=== PATIENT | female | born 1980 | race Caucasian/White ===

== ENCOUNTER 2017-01-25 17:45 | Inpatient (IN) | payer OTHER ==
[~2017-01-25] VITALS: Ht 162.6 cm; Wt 140.2 kg
[~2017-01-25 17:45] MED LIST: ALBUTEROL SULFAT3 M1 INH; ALDACTONE 25 MG25 MG PO; BENZONATATE100 MG PO; CARVEDILOL6.25 MG PO; CEFTRIAXONE2 GM IV; CO-Q-10 100 MG-1 SGL PO; COREG 12.5MG12.5 MG PO; DOBUTAMINE IV; FUROSEMIDE40 MG PO; IBU800 MG PO; MELATONIN5 M1 PO; PROAIR HFA0.09 MG/Ac INH; SPIRIVA 18 MCG18 MCG INH; SPIRIVA1 PUF INH; SPIRONOLACTONE25 MG PO; SYMBICORT 160/41 PUF INH; TAMIFLU 75MG75 MG PO; TIGAN100 MG/ML IM; TYLENOL TAB 32325 MG PO; VENTOLIN1 PUF INH; ZOFRAN 2MG/4 MG/2 ML IV; [UNRECOGNIZED DRUG - OTHER] IV
--- NOTE | 2017-01-25 17:51 | NUR ---
PT STATES THAT SHE HAS CHF AND THAT SHE HAS BEEN FEELING SOB, DIAGNOSED WITH PNA AT [facility] ON SUNDAY AND STATES THAT SHE DOES NOT FEEL BETTER. O2 SAT 92 % ON RA, AFEBRILE, STATES THAT SHE HAS NON PRODUCTIVE COUGH. CALLED DR GARCIA AND HE TOLD HER TO COME TO ER FOR FURTHER EVAL.
--- NOTE | 2017-01-25 18:59 | ED DYSPNEA/ASTHMA COMPLAINT ---
History of Present Illness General Chief Complaint: Fever Stated Complaint: FEVER,SOB Source: patient, family, old records Exam Limitations: no limitations Vital Signs & Intake/Output Vital Signs & Intake/Output Vital Signs Date Time Temp Pulse Resp B/P B/P Pulse O2 O2 Flow FiO2 Mean Ox Delivery Rate 01/25 2023 96 01/25 1922 Room Air 01/25 1747 96.1 90 18 112/74 92 Room Air Allergies Coded Allergies: No Known Allergies (10/19/15) Reconcile Medications Albuterol Sulfate (Proair Hfa) 90 MCG HFA.AER.AD 2 PUF INH AD PRN EXERCISE INDUCED ASTHMA (Reported) Azithromycin 500 MG TABLET 1 TAB PO DAILY PNEUMONIA (Reported) Bumetanide 2 MG TABLET 1 TAB PO BID DIURETIC (Reported) Carvedilol 12.5 MG TABLET 1 TAB PO BID HEART (Reported) Codeine Phosphate/Guaifenesi (Virtussin AC Liquid) 10 MG-100 MG/5 ML LIQUID 15 ML PO Q4-6H PRN COUGH (Reported) Duloxetine HCl 20 MG CAPSULE.DR 1 CAP PO DAILY NERVE PAIN (Reported) Magnesium Oxide 400 MG TABLET 1 TAB PO DAILY SUPPLEMENT (Reported) Pantoprazole Sodium 20 MG TABLET.DR 1 TAB PO DAILY GI (Reported) Sacubitril/Valsartan (Entresto 49 MG-51 MG Tablet) 49 MG-51 MG TABLET 1 TAB PO BID HEART (Reported) Spironolactone 50 MG TABLET 1 TAB PO DAILY DIURETIC (Reported) Ubidecarenone (Co Q-10) (Unknown Strength) CAPSULE (Unknown Dose) PO DAILY SUPPLEMENT (Reported) Triage Note: PT STATES THAT SHE HAS CHF AND THAT SHE HAS BEEN FEELING SOB, DIAGNOSED WITH PNA AT [facility] ON SUNDAY AND STATES THAT SHE DOES NOT FEEL BETTER. O2 SAT 92 % ON RA, AFEBRILE, STATES THAT SHE HAS NON PRODUCTIVE COUGH. CALLED DR GARCIA AND HE TOLD HER TO COME TO ER FOR FURTHER EVAL. Triage Nurses Notes Reviewed? yes Onset: Abrupt Duration: day(s):, constant, getting worse Timing: recent history Severity: moderate, severe Activities at Onset: none : No Patient currently breastfeeds: No HPI: 36-year-old female comes into emergency room with cough and increasing shortness of breath and weakness has been going on for the past few days. Patient was seen at [facility] 5 days ago and started on antibiotics. Patient reports that she feels progressively worse over the last 24 hours. Patient was started on azithromycin. Nothing seems to make the symptoms better. Patient has a history of congestive heart failure. Patient was diagnosed after her previous . Denies any other associated symptoms. (FUNMI BREWER) Past History Travel History Traveled to [place] past 21 day No Medical History Any Pertinent Medical History? 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 No (FUNMI BREWER) Review of Systems Review of Systems Constitutional: Reports: see HPI. EENTM: Reports: see HPI. Respiratory: Reports: see HPI. Cardiovascular: Reports: no symptoms. GI: Reports: no symptoms. Genitourinary: Reports: no symptoms. Musculoskeletal: Reports: no symptoms. Skin: Reports: no symptoms. Neurological/Psychological: Reports: no symptoms. Hematologic/Endocrine: Reports: no symptoms. Immunologic/Allergic: Reports: no symptoms. All Other Systems: Reviewed and Negative (FUNMI BREWER) Physical Exam Physical Exam General Appearance: well developed/nourished, alert Head: atraumatic Eyes: Bilateral: normal appearance. Ears, Nose, Throat: normal ENT inspection, hearing grossly normal Neck: normal inspection Respiratory: no respiratory distress, wheezing Cardiovascular: regular rate/rhythm Gastrointestinal: soft Extremities: normal inspection Neurologic/Psych: awake, alert, oriented x 3, normal gait Skin: intact, normal color Core Measures ACS in differential dx? No Severe Sepsis Present: No Septic Shock Present: No (FUNMI BREWER) Progress Differential Diagnosis: asthma, AMI, bronchitis, costochondritis, CHF, COPD, musculoskeletal pain, pericarditis, pulmonary embolism, pneumonia, pneumothorax, rib fracture, unstable angina Plan of Care: Orders Procedure Date/time Status Heart Healthy Diet 01/26 B Active LACTIC ACID 01/25 2158 Complete TRC EVALUATION (GEN) 01/26 2136 Active Pathway - chart 01/26 2136 Active House Staff 01/26 2136 Active SPECIMEN TO BE OBTAINED 01/26 2136 Active Patient Data 01/25 2034 Active OXYGEN SETUP (GEN) 01/25 2025 Active Saline Lock 01/25 2025 Active Admit to inpatient 01/25 2025 Active Vital Signs 01/25 2025 Active Activity/Ambulation 01/25 2025 Active Code Status 01/25 2025 Active Intake & Output 01/25 192 Active BLOOD CULTURE 01/25 1858 Active TROPONIN LEVEL 01/25 185 Complete LACTIC ACID 01/25 1858 Complete COMPREHENSIVE METABOLIC PANEL 01/25 1858 Complete CBC WITHOUT DIFFERENTIAL 01/25 1858 Complete B-TYPE NATRIURETIC PEP (BNP) 01/25 1858 Complete EKG 01/25 1858 Active INCENTIVE SPIROMETRY TRX (GEN) 01/25 UNK Active Lab Add-on Test 01/25 UNK Active VTE Mechanical Prophylaxis 01/25 UNK Active Current Medications Sig/Tammy Start time Last Medication Dose Stop Time Status Admin Ceftriaxone Sodium 1,000 MG DAILY 01/26 1000 UNVr (Rocephin) Duloxetine HCl 20 MG DAILY 01/26 1000 UNVr (Cymbalta) Enoxaparin Sodium 40 MG DAILY 01/26 1000 UNVr (Lovenox) Magnesium Oxide 400 MG DAILY 01/26 1000 UNVr (Mag-Ox) Spironolactone 50 MG DAILY 01/26 1000 UNVr (Aldactone) Omeprazole 20 MG DAILY AC 01/26 0700 UNVr (Prilosec) Bumetanide 2 MG BID 01/25 2200 UNVr (Bumex) Carvedilol 12.5 MG BID 01/25 2200 UNVr (Coreg) Albuterol Sulfate 2 PUF .[AD] PRN 01/25 2145 UNVr (Ventolin) Azithromycin 500 MG Q24H 01/25 2145 UNVr (Zithromax) Sodium Chloride 250 ML (Normal Saline 0.9%) Guaifenesin 10 ML Q4P PRN 01/25 2145 UNVr (Robitussin) Non-Formulary 0 SEE ADMIN CRITERIA 01/25 2145 UNVr Medication (NON FORMULARY) Laboratory Tests 01/25/17 2014: Lactic Acid 0.9 01/25/171914: Anion Gap 13, Estimated GFR > 60, BUN/Creatinine Ratio 17.1, Glucose 161 H, Lactic Acid 1.5, Calcium 8.6, Total Bilirubin 0.4, AST 21, ALT 33, Alkaline Phosphatase 67, Troponin I < 0.01, Qsz-G-Sowmiquxhuc Pept 707 H, Total Protein 7.1, Albumin 3.9, Globulin 3.2, Albumin/Globulin Ratio 1.2, CBC w Diff NO MAN DIFF REQ, RBC 4.30, MCV 84.8, MCH 27.6, RDW 14.1, MPV 8.5, Gran % 57.8, Lymphocytes % 34.2, Monocytes % 6.6, Eosinophils % 1.1, Basophils % 0.3, Absolute Granulocytes 3.1, Absolute Lymphocytes 1.9, Absolute Monocytes 0.4, Absolute Eosinophils 0.1, Absolute Basophils 0, PUBS MCHC 32.5 L Microbiology 01/25 2014 BLOOD: Blood Culture - RECD 01/25 1915 BLOOD: Blood Culture - RECD Diagnostic Imaging: Viewed by Me: Radiology Read. Discussed w/RAD: Radiology Read. Radiology Impression: SERVICE DATE: 01/25/17 EXAM TYPE: RAD - XRY-CHEST XRAY, PA AND LATERAL EXAMINATION: XR CHEST CLINICAL INFORMATION: Cough, shortness of breath. COMPARISON: None TECHNIQUE: 2 views of the chest were obtained. FINDINGS: There is focal pneumonic infiltrate with patchy alveolar opacities of the right lower lobe. There is no pleural effusion. No pulmonary vascular congestion. Heart size enlarged. Precordial pacemaker lead anterior soft tissues of chest IMPRESSION: Right lower lobe pneumonia. Initial ED EKG: normal intervals, normal p-waves, normal sinus rhythm, rate (78) (FUNMI BREWER) Departure Departure Disposition: STILL A PATIENT Condition: Stable Clinical Impression Primary Impression: Right lower lobe pneumonia Referrals: CUBA AMIN MD (PCP/Family) Departure Forms: Customer Survey General Discharge Information Admission Note Spoke With: JOSE MCCRARY MD Documentation of Exam: Documentation of any treatments & extenuating circumstances including Concerns Regarding Discharge (functional status, medication knowledge or non-compliance, living conditions, etc.) that warrant an admission rather than observation: Patient has failed outpatient treatment with oral antibiotics. Patient has worsening symptoms. Patient will require supplemental oxygen as well as IV antibiotics. Possible pulmonary consult. History of congestive heart failure. (FUNMI BREWER) PA/NETWORK/TELECOM ENGINEER Co-Sign Statement Statement: ED Attending supervision documentation- x I saw and evaluated the patient. I have also reviewed all the pertinent lab results and diagnostic results. I agree with the findings and the plan of care as documented in the PA's/NETWORK/TELECOM ENGINEER's documentation. [] I have reviewed the ED Record and agree with the PA's/NETWORK/TELECOM ENGINEER's documentation. [] Additions or exceptions (if any) to the PAs/NETWORK/TELECOM ENGINEER's note and plan are summarized below: [] (RITA GARCIA MD) Critical Care Note Critical Care Note Critical Care Time: non-applicable (FUNMI BREWER)
--- NOTE | 2017-01-25 19:20 | RADIOLOGY REPORT ---
EXAMINATION: XR CHEST CLINICAL INFORMATION: Cough, shortness of breath. COMPARISON: None TECHNIQUE: 2 views of the chest were obtained. FINDINGS: There is focal pneumonic infiltrate with patchy alveolar opacities of the right lower lobe. There is no pleural effusion. No pulmonary vascular congestion. Heart size enlarged. Precordial pacemaker lead anterior soft tissues of chest IMPRESSION: Right lower lobe pneumonia.
--- NOTE | 2017-01-25 19:23 | NUR ---
BLUE, GOLD, LAV, FRANKLIN TUBES SENT TO LAB WELL AT THE 1ST BLOOD CULTURE.
[2017-01-25 19:28] LABS: ABSOLUTE BASOPHIL COUNT 0 /CUMM (0.0-0.2); ABSOLUTE EOSINOPHIL COUNT 0.1 /CUMM (0.0-0.7); ABSOLUTE GRANULOCYTE CT 3.1 /CUMM (1.4-6.5); ABSOLUTE LYMPH COUNT 1.9 /CUMM (1.2-3.4); ABSOLUTE MONOCYTE COUNT 0.4 /CUMM (0.10-0.60); BASOPHIL % 0.3 % (0.0-2.0); EOSINOPHIL % 1.1 % (0-5); GRANULOCYTE % 57.8 % (42.2-75.2); HEMATOCRIT 36.5 % (37-47); MEAN CORPUSCULAR HGB 27.6 PG (27.0-31.0); MEAN CORPUSCULAR HGB CONC 32.5 G/DL (33.0-37.0); MEAN CORPUSCULAR VOLUME 84.8 FL (81.0-99.0); MEAN PLATELET VOLUME 8.5 FL (7.4-10.4); PLATELET COUNT 253 /CUMM (130-400); RBC DISTRIBUTION WIDTH 14.1 % (11.5-14.5); WHITE BLOOD CELL COUNT 5.4 /CUMM (4.8-10.8)
[2017-01-25] MEDS ORDERED: MAGNESIUM OXID400 M1 PO (19:55)
[2017-01-25] MEDS ORDERED: BUMETANIDE2 M1 PO (19:55)
[2017-01-25] MEDS ORDERED: PANTOPRAZOLE SO20 M1 PO (19:55)
[2017-01-25] MEDS ORDERED: SPIRONOLACTONE50 M1 PO (19:55)
[2017-01-25] MEDS ORDERED: ENTRESTO 49 MG1 EACH PO (19:56)
[2017-01-25] MEDS ORDERED: DULOXETINE HCL20 MG PO (19:56)
[2017-01-25] MEDS ORDERED: CARVEDILOL12.5 M1 PO (19:56)
[2017-01-25] MEDS ORDERED: CO Q-10200 MG PO (19:56)
[2017-01-25] MEDS ORDERED: AZITHROMYCIN500 M3 PO (19:57)
[2017-01-25] MEDS ORDERED: VIRTUSSIN AC L118 M1 PO (19:58)
[2017-01-25] MEDS ORDERED: PROAIR HFA8.5 GM INH (19:58)
--- NOTE | 2017-01-25 20:23 | NUR ---
CALLED AT 2015 FOR NEB RX ORDERED AT 1900
--- NOTE | 2017-01-25 20:25 | NUR ---
BLOOD DRAWN AND SENT TO LAB. 2ND SET OF BLOOD CULTURES AND FRANKLIN.
--- NOTE | 2017-01-25 20:46 | History & Physical ---
AGUSTÍN THOMAS[place] [place]1720[place] General Information and HPI MD Statement: I have seen and personally examined CHAD CRUZ and documented this H& P. The patient is a 36 year old F who presented with a patient stated chief complaint of shortness of breath. Source of Information: patient, old records Exam Limitations: no limitations History of Present Illness: Ms. 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 During this time patient has been having dry cough, intermittent fevers and chills as well. Of note, her 4-year-old son at home recently had pneumonia. She was seen at [facility] for the same symptoms 5 days prior to current presentation and discharged home on azithromycin. However, her symptoms have worsened despite taking the medication. The day prior to current presentation her temperature was 102 which came down with Tylenol. ROS is also positive for chest discomfort from coughing, nausea and intermittent lightheadedness. She has orthopnea at baseline and uses 2-3 pillows to sleep which is unchanged. She denies peripheral edema but endorses bloating, noting that she usually retains fluid in her stomach. Patient was diagnosed with dilated cardiomyopathy based on an ECHO showing LVEF Of 20-25% with pulmonary hypertension as part of the cardiac workup for bariatric surgery in 2013. Cardiomyopathy was felt to be of unclear etiology with cardiac catheterization that was performed in March 2015 which was negative. She was hospitalized here at [facility] (10/18-10/21) for CHF exacerbation, later developing cardiogenic shock requiring transfer to the ICU. She was transferred to [facility] for further evaluation and management of her cardiac status where an ICD was placed, which has fired only once since then. Allergies/Medications Allergies: Coded Allergies: No Known Allergies (10/19/15) Home Med list Albuterol Sulfate (Proair Hfa) 90 MCG HFA.AER.AD 2 PUF INH AD PRN EXERCISE INDUCED ASTHMA (Reported) Azithromycin 500 MG TABLET 1 TAB PO DAILY PNEUMONIA (Reported) Bumetanide 2 MG TABLET 1 TAB PO BID DIURETIC (Reported) Carvedilol 12.5 MG TABLET 1 TAB PO BID HEART (Reported) Codeine Phosphate/Guaifenesi (Virtussin AC Liquid) 10 MG-100 MG/5 ML LIQUID 15 ML PO Q4-6H PRN COUGH (Reported) Duloxetine HCl 20 MG CAPSULE.DR 1 CAP PO DAILY NERVE PAIN (Reported) Magnesium Oxide 400 MG TABLET 1 TAB PO DAILY SUPPLEMENT (Reported) Pantoprazole Sodium 20 MG TABLET.DR 1 TAB PO DAILY GI (Reported) Sacubitril/Valsartan (Entresto 49 MG-51 MG Tablet) 49 MG-51 MG TABLET 1 TAB PO BID HEART (Reported) Spironolactone 50 MG TABLET 1 TAB PO DAILY DIURETIC (Reported) Ubidecarenone (Co Q-10) (Unknown Strength) CAPSULE (Unknown Dose) PO DAILY SUPPLEMENT (Reported) Past History Travel History Traveled to [place] past 21 day No Medical History Neurological: neuropathic pain EENT: NONE Cardiovascular: cardiomyopathy (nonischemic dilated), systolic CHF Respiratory: asthma (exercise-induced) Gastrointestinal: GERD Hepatic: NONE Renal: NONE Musculoskeletal: NONE Psychiatric: NONE Endocrine: obesity Blood Disorders: NONE Cancer(s): NONE CONCRETE FLOATER/Reproductive: NONE History of MRSA: No History of VRE: No History of CDIFF: No Surgical History Surgical History: (x4), AICD placement Past Family/Social History Family History Relations & Conditions if any FATHER FH: COPD (chronic obstructive pulmonary disease) Psychosocial History Where do you live? Home Who Do You Live With? spouse, child Services at Home: None Primary Language: Taiwanese Smoking Status: Former Smoker ETOH Use: denies use Illicit Drug Use: denies illicit drug use Functional Ability ADLs Independent: dressing, eating, toileting, bathing. Ambulation: independent IADLs Independent: shopping, housework, finances, food prep, telephone, transportation , medication admin. Review of Systems Review of Systems Constitutional: Reports: chills, fever. EENTM: Reports: no symptoms. Cardiovascular: Reports: chest pain (with coughing), orthopena (unchanged from baseline). Denies: peripheral edema. Respiratory: Reports: cough, short of breath, sputum production, wheezing. GI: Reports: bloating, nausea. Genitourinary: Denies: dysuria, frequency. Musculoskeletal: Reports: no symptoms. Skin: Reports: no symptoms. Neurological/Psychological: Reports: no symptoms. Hematologic/Endocrine: Reports: no symptoms. Immunologic/Allergic: Reports: no symptoms. All Other Systems: Reviewed and Negative Exam & Diagnostic Data Last 24 Hrs of Vital Signs/I&O Vital Signs Date Time Temp Pulse Resp B/P B/P Pulse O2 O2 Flow FiO2 Mean Ox Delivery Rate 01/25 2023 96 01/25 1922 Room Air 01/257 96.1 90 18 112/74 92 Room Air Physical Exam General Appearance Alert, Oriented X3, No Acute Distress, Obese Skin No Rashes Skin Temp/Moisture Exam: Warm/Dry Sepsis Skin Exam (color): Normal for Ethnicity HEENT Atraumatic, Mucous Membr. moist/pink Neck Supple, No JVD Cardiovascular Regular Rate, Normal S1, Normal S2 Lungs Clear to Auscultation Abdomen Soft, No Tenderness, Positive Bowel Sounds Extremities No Clubbing, No Cyanosis, No Edema Last 24 Hrs of Labs/Geronimo: Laboratory Tests 01/25/172013: Lactic Acid 0.9 01/25/171914: Anion Gap 13, Estimated GFR > 60, BUN/Creatinine Ratio 17.1, Glucose 161 H, Lactic Acid 1.5, Calcium 8.6, Total Bilirubin 0.4, AST 21, ALT 33, Alkaline Phosphatase 67, Troponin I < 0.01, Gvg-I-Qoqworxyqel Pept 707 H, Total Protein 7.1, Albumin 3.9, Globulin 3.2, Albumin/Globulin Ratio 1.2, CBC w Diff NO MAN DIFF REQ, RBC 4.30, MCV 84.8, MCH 27.6, RDW 14.1, MPV 8.5, Gran % 57.8, Lymphocytes % 34.2, Monocytes % 6.6, Eosinophils % 1.1, Basophils % 0.3, Absolute Granulocytes 3.1, Absolute Lymphocytes 1.9, Absolute Monocytes 0.4, Absolute Eosinophils 0.1, Absolute Basophils 0, PUBS MCHC 32.5 L Microbiology 01/25 2014 BLOOD: Blood Culture - RECD 01/25 1915 BLOOD: Blood Culture - RECD Diagnostic Data EKG Results Sinus rhythm HR 78 QTc 543 CXR Results Right lower lobe pneumonia. Assessment/Plan Assessment: Ms. 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 #SOB: Most likely etiology is community-acquired pneumonia given associated fever, chills and cough and CXR showing right lower lobe pneumonia. Patient is currently afebrile and without leukocytosis, although this is likely because patient was partially treated. Seen at [facility] five days prior to admission and discharged on azithromycin, however symptoms have worsened despite taking medications. Although patient has HFrEF, acute exacerbation is unlikely as patient has no evidence of volume overload on exam. * Admit to General Medicine for IV antibiotics as patient failed outpatient antibiotics treatment. * Start ceftriaxone 1 g IV daily. * Start doxycycline 100 mg IV Q12H in place of azithromycin due to prolonged QTc. * TRC and nebs. * Start Mucinex 600 mg PO BID. * Check blood and sputum cultures. * Encourage oral hydration. * Check urinary Strep pneumo and Legionella antigen. * Encourage incentive spirometry. #Non ischemic cardiomyopathy: Does not seem to be in acute exacerbation of HFrEF with no evidence of volume overload on exam or CXR. proBNP only mildly elevated to 707. Follows with machine operator farmworker Dr. Yee. S/p ICD placement in October 2015. Cardiomyopathy is of unclear etiology with cardiac catheterization in March 2015 that was negative. * Consult cardiology in the AM. * Daily weights and strict I/Os. * Continue rxszs-cz-xvyoxzruv Bumex 4 mg PO daily, carvedilol 12.5 mg PO BID, spironolactone 50 mg PO daily and Entresto 49 mg PO BID. #Neuropathic pain: * Continue srgeu-ka-ezqvssbab duloxetine 20 mg PO daily. #GERD: Takes pantoprazole 20 mg PO daily. * Omeprazole 20 mg PO daily AC while inpatient. Diet: CHF DVT PPx: Lovenox and ALPs CODE: FULL As Ranked By This Provider Problem List: 1. Right lower lobe pneumonia 2. HFrEF (heart failure with reduced ejection fraction) 3. Morbid obesity 4. Community acquired pneumonia 5. Nonischemic cardiomyopathy Core Measures/Miscellaneous Acute Coronary Syndrome ACS Diagnosis: No Cerebrovascular Accident CVA/TIA Diagnosis: No Congestive Heart Failure CHF Diagnosis: No VTE (View Protocol) VTE Risk Factors: Age > 40, CHF or Resp failure, Obesity No [facility] prophylaxis d/t: No contraindications No VTE Pharm Prophylaxis d/t: No contraindications VTE Diagnosis: No VTE Type: NONE VTE Confirmed by (Test): NONE Sepsis (View Protocol) Severe Sepsis Present: No Septic Shock Septic Shock Present: No Miscellaneous Documentation Attending Case Discussed With: JOSE MCCRARY MD Primary Care Physician: CUBA AMIN MD Patient sees these Specialists Surveillance Technician Patel Yee MD Level of Patient Care: General Medicine LEELA RICKETTS 01/25/17 2131: Resident Review Statement Resident Statement: examined this patient, discussed with machine learning intern, agreed with machine learning intern, reviewed images, amended to note Other Findings: This is a 36 years old lady with a past medical history of dilated cardiomyopathy of unknown cause ejection fraction 20-25% status post AICD placement about one year ago last admitted here in October 2015 with cardiogenic shock. The CHF symptoms has remained very stable and has not been admitted since October last year taking her medications and tolerating well. The patient is presenting with one-week history of cough fever and chills she has sick contact the son had pneumonia she was seen at [facility] on Sunday diagnosed with pneumonia and started on azithromycin she has been taking the medication but feels like the symptoms continue to persist having cough that is not getting better and also spiking fever highest 102 yesterday. She denies any paroxysmal nocturnal dyspnea, orthopnea she uses 2 pillows at baseline and this what she has been doing she has no swelling of lower limbs. She denies any wheezing. She has no dysuria or change in urine frequency, she has nausea but no vomiting, reports on and off lightheadedness and dizziness but denies any palpitations. On arrival the patient was afebrile 96.1 heart rate of 90, respiration of 18, blood pressure 102/74 and was saturating 92% on room air Physical examination: Morbidly obese lady seated comfortably on the bed not in acute distress alert and oriented to time place and person very pleasant HEENT: No distended neck vessels wet mucous membranes Chest: Patient has bilateral bronchial breath sounds but no crackles Abdomen: Obese nontender no palpable mass Extremities: No cyanosis edema or clubbing Labs: Shows normal white count 5400, mild anemia H&H H&H 11.9 and 36.5, proBNP is 707 but this is lower compared to 6370 on last admission, normal lactic acid EKG shows sinus rhythm normal axis around [address]-T wave changes and has prolonged QTC of 543 Imaging: CXR shows right lower lobe pneumonia Assessment and plan 36 years old lady with extensive cardiac history of dilated cardiomyopathy ejection fraction 20-25% with AICD in place presenting with 1 week of cough fever chills and shortness of breath she has sick contact and 5 days ago was seen at [facility] treated as pneumonia with oral azithromycin without significant improvement. She has continued to have cough and spiked a fever highest 10 2F yesterday. She has no paroxysmal nocturnal dyspnea orthopnea or edema she has been taking all her CHF medications and tolerating very well. Community acquired pneumonia partially treated Dilated cardiomyopathy with decreased ejection fraction Morbidly obesity GERD Admitting the patient to general medicine floor, vitals every shift Urine Legionella and streptococcal antigens Lower respiratory culture, blood culture 2 follow-up results Continue ceftriaxone 1000 mg daily and Doxycycline 100MG BID TRC evaluation and nebulization around the clock Mucinex 600 mg twice a day incentive spirometry Cardiomyopathic continue all home medications bumetanide, spironolactone, entresto and carvedilol A.M. Courtesy call to machine operator farmworker Dr. Nakia Harris for DVT prophylaxis Patient is full code Pain pathway JOSE MCCRARY 01/26/17 0303: Attending MD Review Statement Attending Statement Attending MD Statement: examined this patient, discuss w/resident/PA/CARD TAPE CONVERTER OPERATOR, agreed w/resident/PA/CARD TAPE CONVERTER OPERATOR, reviewed EMR data (avail), reviewed images, amended to note Attending Assessment/Plan: CC: Persistent cough, shortness of breath PMH: Asthma, nonischemic cardiomyopathy HFrEF (20- 25%) S/P ICD Patient developed nonproductive cough 6 days back, associated with fever and worsening of breathing. Patient went to [facility] 4 days back and was found to have pneumonia and was prescribed azithromycin. Even after taking medications at home her cough was progressively getting worse, more short of breath, fever spike of 102 yesterday, chest soreness after severe cough so she came again to ER. She denies any worsening of leg swellings or abdominal distention or orthopnea. Her son is sick with pneumonia. She did not have any recent hospitalization. Vitals: Afebrile, pulse in 90s, RR 20s, blood pressure 110/76, saturating well on room air. On exam: A O 3, cooperative, no acute distress, obese, neck supple, JVD normal, no lymphadenopathy, mucosa moist, no focal neurological deficit, no dependent edema, no obvious skin rashes or inflammation CVS: S1-S2, RRR. RS: Coarse on the right base, no wheezing or crackles. Abdomen: Soft, NT, ND, obese, bowel sounds present. Labs: WBC 5.4, neutrophils 57%, hemoglobin 11.9, BMP and LFT unremarkable, lactate 1.5, troponin less than 0.01, proBNP 707 CXR: Right lower lobe pneumonia. EKG: No acute changes A and P 36-year-old female with significant past medical history for nonischemic cardiomyopathy with reduced ejection fraction S/P ICD, presented as in ER with recently diagnosed pneumonia and worsening symptoms. She had fever spike of 102 at home, her cough is worsened and chest x-ray shows right-sided infiltrate. It appears that she failed outpatient antibiotic treatment, and would benefit from IV antibiotics, given her comorbidities. She does not have any recent healthcare exposure and her son is sick with pneumonia + Community-acquired pneumonia + History of nonischemic cardiomyopathy with heart failure with reduced ejection fraction: No signs of volume overload + History of asthma - Admit to general medicine - Continue ceftriaxone and doxycycline - Continue albuterol nebulization when necessary - Mucinex 600 mg by mouth twice a day - Incentive spirometry - Blood culture, urine pneumococcal antigen - Continue all her home medications including bumetanide, Coreg, Cymbalta, Protonix, magnesium, Entresto, spironolactone - encourage oral hydration - Daily weights, strict I's and O's - DVT prophylaxis with Lovenox - Adequate pain control
--- NOTE | 2017-01-25 21:08 | NUR ---
[facility] ASSIGNMENT [id number]
[2017-01-25 22:46] VITALS: BP 110/76
--- NOTE | 2017-01-26 | NUR ---
PT A&Ox3, DENIES PAIN, VSS. ORIENTED TO FLOOR, CALL HUNTER IN REACH.
--- NOTE | 2017-01-26 03:04 | Admission Certification ---
Admission Certification Certification Statement - As attending physician, I certify that at the time of - admission, based on clinical presentation, severity of - symptoms, need for further diagnostic testing and - therapeutic interventions, and risk of adverse outcomes - without in-hospital treatment, in my clinical assessment, - this patient requires an acute hospital stay for a minimum - of two nights or longer. I have also considered psychsocial - factors such as support system, advanced age, financial - issues, cognitive issues, and failed out-patient treatments, - past re-admission history, safety of patient, and lack of - compliance as applicable. Specific rationale supporting this admission is: Community-acquired pneumonia with failed outpatient treatment
[2017-01-26 06:29] VITALS: BP 110/60
--- NOTE | 2017-01-26 07:25 | PN- Housestaff ---
AARON THOMAS,SONIA 01/26/17 0725: Subjective Follow-up For: Pneumonia Subjective: Patient seen and examined this morning. Resting comfortably in bed. Endorses exertional dyspnea and persistent cough productive of white sputum but feeling slightly better overall. Denies shortness of breath at rest. Satting well on RA. Denies any fever, chills, chest discomfort, palpitations, abdominal pain, nausea , vomiting, headache. No events reported overnight. Review of Systems Constitutional: Reports: see HPI. Objective Last 24 Hrs of Vital Signs/I&O Vital Signs Date Time Temp Pulse Resp B/P B/P Pulse O2 O2 Flow FiO2 Mean Ox Delivery Rate 01/26 0837 Room Air Room Air 01/26 0629 98.5 69 20 110/60 95 Room Air 01/26 0020 97 110/76 01/25 2246 98.4 97 20 110/76 92 Room Air 01/25 2023 96 01/25 1922 Room Air 01/25 1747 96.1 90 18 112/74 92 Room Air Intake & Output 01/26 1600 01/26 0800 01/26 0000 Intake Total 250 Output Total 700 Balance -450 Intake, IV 10 Intake, Oral 240 Output, Urine 700 Patient 138.346 kg 136.078 kg Weight Weight Standing Scale Measurement Method Physical Exam General Appearance: Alert, Oriented X3, Cooperative, No Acute Distress Other Physical Findings: Skin No Rashes Skin Temp/Moisture Exam: Warm/Dry Sepsis Skin Exam (color): Normal for Ethnicity HEENT Atraumatic, Mucous Membr. moist/pink Neck Supple, No JVD Cardiovascular Regular Rate, Normal S1, Normal S2 Lungs Clear to Auscultation Abdomen Soft, No Tenderness, Positive Bowel Sounds Extremities No Clubbing, No Cyanosis, No Edema Current Medications: Current Medications Sig/Tammy Start time Last Medication Dose Route Stop Time Status Admin Acetaminophen 650 MG Q6P PRN 01/25 2230 AC PO Acetaminophen/ 1 TAB Q6P PRN 01/25 2230 AC Hydrocodone Bitart PO Albuterol Sulfate 3 ML EVERY 4 HRS/AWAKE 01/26 1200 AC 01/26 INH 0836 Albuterol Sulfate 2 PUF Q4-6 PRN PRN 01/25 2145 AC INH Albuterol Sulfate 3 ML ONCE ONE 01/25 1900 DC 01/25 INH 01/25 Azithromycin 500 MG Q24H 01/25 2145 DC Sodium Chloride 250 ML IV Azithromycin 500 MG ONCE ONE 01/25 2030 DC 01/25 Sodium Chloride 250 ML IV 01/25 Bumetanide 4 MG DAILY 01/26 1000 AC PO Bumetanide 2 MG BID 01/25 2200 DC PO Carvedilol 12.5 MG BID 01/25 2200 AC 01/26 PO 0020 Ceftriaxone Sodium 1,000 MG 2200 01/26 220 AC IV Ceftriaxone Sodium 0 .STK-MED ONE 01/25 2201 DC .ROUTE Ceftriaxone Sodium 1,000 MG ONCE ONE 01/25 2030 DC 01/25 IV 01/25 2031 215 Doxycycline Hyclate 100 MG Q12 01/26 1000 AC Sodium Chloride 100 ML IV Duloxetine HCl 20 MG DAILY 01/26 1000 AC PO Enoxaparin Sodium 40 MG DAILY 01/26 1000 AC SC Guaifenesin 600 MG Q12 01/25 2200 AC 01/26 PO 0019 Guaifenesin 10 ML Q4P PRN 01/25 2145 DC PO Ipratropium Sherwood 2.5 ML ONCE ONE 01/25 190 DC 01/25 INH 01/25 1902021 Lactobacillus 1 CAP DAILY 01/26 1000 AC Acidophilus PO Magnesium Oxide 400 MG DAILY 01/26 1000 AC PO Metoclopramide HCl 5 MG Q6P PRN 01/25 2300 AC PO Morphine Sulfate 2 MG Q4P PRN 01/25 2230 AC IV Omeprazole 20 MG DAILY AC 01/26 0700 AC 01/26 PO 0455 Spironolactone 50 MG DAILY 01/26 1000 DC PO Spironolactone 50 MG DAILY 01/26 1000 AC PO Spironolactone 50 MG BID 01/25 2330 DC PO Last 24 Hrs of Lab/Geronimo Results Last 24 Hrs of Labs/Mics: Laboratory Tests 01/25/172013: Lactic Acid 0.9 01/25/171914: Anion Gap 13, Estimated GFR > 60, BUN/Creatinine Ratio 17.1, Glucose 161 H, Lactic Acid 1.5, Calcium 8.6, Total Bilirubin 0.4, AST 21, ALT 33, Alkaline Phosphatase 67, Troponin I < 0.01, Upa-J-Nysjhbhtlce Pept 707 H, Total Protein 7.1, Albumin 3.9, Globulin 3.2, Albumin/Globulin Ratio 1.2, CBC w Diff NO MAN DIFF REQ, RBC 4.30, MCV 84.8, MCH 27.6, RDW 14.1, MPV 8.5, Gran % 57.8, Lymphocytes % 34.2, Monocytes % 6.6, Eosinophils % 1.1, Basophils % 0.3, Absolute Granulocytes 3.1, Absolute Lymphocytes 1.9, Absolute Monocytes 0.4, Absolute Eosinophils 0.1, Absolute Basophils 0, PUBS MCHC 32.5 L Microbiology 01/26 630 URINE ROUT: Legionella Antigen - COMP 01/26 630 URINE ROUT: Streptococcus pneumoniae Antigen (M - COMP 01/26 30 LOWER RESP: Respiratory Culture - CAN Cancelled: NUMBER OF SQUAMOUS CELLS INDICATES POOR QUALITY SPECIMEN 01/26 30 LOWER RESP: Gram Stain - CAN Cancelled: NUMBER OF SQUAMOUS CELLS INDICATES POOR QUALITY SPECIMEN 01/25 2014 BLOOD: Blood Culture - RECD 01/25 1915 BLOOD: Blood Culture - RECD Assessment/Plan Assessment: Ms. 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 # Community-acquired pneumonia CXR consistent with RLL pneumonia. Associated subjective fever, chills and cough. Patient is currently afebrile and without leukocytosis, although this is likely because patient was partially treated. Seen at [facility] five days prior to admission and discharged on azithromycin, however symptoms have worsened despite taking medications. Although patient has HFrEF, acute exacerbation is unlikely as patient has no evidence of volume overload on exam. * Cont ceftriaxone 1 g IV daily * Cont doxycyline 100 [address] IV Q12H in place of azithromycin due to prolonged QTc. * TRC and nebs. * Cont Mucinex 600 mg PO BID. * Tessalon PRN for cough control * Check blood and sputum cultures. * Encourage oral hydration. * Check urinary Strep pneumo and Legionella antigen. * Encourage incentive spirometry. #Non iscchemic cardiomyopathy: Does not seem to be in acute exacerbation of HFrEF with no evidence of volume overload on exam or CXR. proBNP only mildly elevated to 707. Follows with boom man Dr. Yee. S/p ICD placement in October 2015. Cardiomyopathy is of unclear etiology [facility] cardiac catheterization in March 2015 that was negative * Daily weights and strict I/Os. * Continue ngzaw-ta-qwqjmlexc Bumex 4 mg PO daily, carvedilol 12.5 mg PO BID, spironolactone 50 mg PO daily and Entresto 49 mg PO BID. #Neuropathic pain: * Continue jxetd-zn-erpvlxtli duloxetine 20 mg PO daily. #GERD: Takes pantoprazole 20 mg PO daily. * Omeprazole 20 mg PO daily AC while inpatient. Diet: CHF DVT PPx: Lovenox and ALPs CODE: FULL Problem List: 1. Congestive heart failure (CHF) 2. Asthma 3. Shock 4. Right lower lobe pneumonia 5. HFrEF (heart failure with reduced ejection fraction) 6. Morbid obesity 7. Morbid obesity with BMI of 50.0-59.9, adult 8. Community acquired pneumonia 9. 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 Afebrile here, WBC 5.6. Patient is poorly compliant with her medications. 1. RLL pneumonia 2. Dilated cardiomyopathy 3. HFrEF Plan - Continue on general medicine - Continue Ceftriaxone and Doxycycline (Failed Azithromycin as outpatient) - Continue home medications - Cardiology consult - Follow cultures, S.pneumo and Legionella antigens - DVT PPx
--- NOTE | 2017-01-26 14:18 | Patient Discharge Instructions ---
Discharge Instructions General Discharge Information You were seen/treated for: Pneumonia Special Instructions: Please follow up with your primary care physician and filling station attendant Dr. Yee within 1 week of discharge. Please complete course of antibiotics by till 02/04/17 Diet Continue normal diet: Yes Activity Full Activity/No Limits: Yes (as tolerated) Acute Coronary Syndrome Inclusion Criteria At DC or during hospital stay patient has or had the following: ACS DIAGNOSIS No Discharge Core Measures Meds if any: Prescribed or Continued at Discharge Meds if any: NOT Prescribed or Continued at Discharge Congestive Heart Failure Inclusion Criteria At DC or during hospital stay patient has or had the following: CHF DIAGNOSIS No Discharge Core Measures Meds if any: Prescribed or Continued at Discharge Meds if any: NOT Prescribed or Continued at Discharge Cerebrovascular accident Inclusion Criteria At DC or during hospital stay patient has or had the following: CVA/TIA Diagnosis No Discharge Core Measures Meds if any: Prescribed or Continued at Discharge Meds if any: NOT Prescribed or Continued at Discharge Venous thromboembolism Inclusion Criteria VTE Diagnosis No VTE Type NONE VTE Confirmed by (Test) NONE Discharge Core Measures - Per Current guidelines, there needs to be overlap - treatment for the first 5 days of Warfarin therapy. - If discharged on Warfarin prior to 5 days of - overlap therapy, the patient will need to be - assessed for post discharge needs including - *Post discharge parental anticoagulation - *Warfarin and/or parental anticoagulation education - *Follow up date to check INR post discharge At least 5 days overlap therapy as Inpatient No Meds if any: Prescribed or Continued at Discharge Note: Overlap Therapy is Warfarin and Anticoagulant Meds if any: NOT Prescribed or Continued at Discharge
[2017-01-26 14:42] VITALS: BP 118/72
[2017-01-26 22:49] VITALS: BP 108/71
--- NOTE | 2017-01-27 06:35 | PN- Housestaff ---
See Addendum Subjective Follow-up For: RLL Pneumonia Subjective: Ms Hansen was seen and examined this morning. Resting comfortably in bed. Reports no issues overnight. Currently comfortable. Tolerating by mouth intake well. Continues to complain of cough. Mildly productive in nature. Denies any fever, chills, nausea, vomiting. Denies any respiratory distress is currently saturating well on room air. Review of Systems Constitutional: Reports: see HPI. Objective Last 24 Hrs of Vital Signs/I&O Vital Signs Date Time Temp Pulse Resp B/P B/P Pulse O2 O2 Flow FiO2 Mean Ox Delivery Rate 01/26 2249 98.1 73 20 108/71 94 Room Air 01/26 1549 98 Room Air 01/26 1442 98.5 72 20 118/72 98 01/26 1330 94 Room Air 01/26 1118 68 122/64 Physical Exam General Appearance: Alert, Oriented X3, Cooperative Skin: No Rashes Cardiovascular: Normal S1, Normal S2 Lungs: Clear to Auscultation Abdomen: Normal Bowel Sounds, Soft, No Tenderness Neurological: Normal Speech, Strength at 5/5 X4 Ext Extremities: No Clubbing, No Cyanosis, No Edema Current Medications: Current Medications Sig/Tammy Start time Last Medication Dose Route Stop Time Status Admin Acetaminophen 650 MG Q6P PRN 01/25 2230 AC PO Acetaminophen/ 1 TAB Q6P PRN 01/25 2230 AC Hydrocodone Bitart PO Albuterol Sulfate 3 ML EVERY 4 HRS/AWAKE 01/26 1200 AC 01/26 INH 2022 Albuterol Sulfate 2 PUF Q4-6 PRN PRN 01/25 2145 AC INH Benzonatate 100 MG TIDPRN PRN 01/26 1530 AC 01/26 PO 1833 Bumetanide 4 MG DAILY 01/26 1000 AC 01/26 PO 1113 Carvedilol 12.5 MG BID 01/25 2200 AC 01/26 PO 2108 Ceftriaxone Sodium 1,000 MG 2200 01/26 2200 AC 01/26 IV 2107 Doxycycline Hyclate 100 MG Q12 01/26 1000 AC 01/26 Sodium Chloride 100 ML IV 210 Duloxetine HCl 20 MG DAILY 01/26 1000 AC 01/26 PO 1113 Enoxaparin Sodium 40 MG DAILY 01/26 1000 AC 01/26 SC 1114 Furosemide 40 MG .STK-MED ONE 01/26 1107 DC IV 01/26 1108 Furosemide 20 MG ONCE ONE 01/26 1030 DC 01/26 IV 01/26 1031 1114 Guaifenesin 600 MG Q12 01/25 2200 AC 01/26 PO 2107 Lactobacillus 1 CAP DAILY 01/26 1000 AC 01/26 Acidophilus PO 1113 Magnesium Oxide 400 MG DAILY 01/26 1000 AC 01/26 PO 1113 Metoclopramide HCl 5 MG Q6P PRN 01/25 2300 AC PO Morphine Sulfate 2 MG Q4P PRN 01/25 2230 AC IV Omeprazole 20 MG DAILY AC 01/26 0700 AC 01/27 PO 0625 Patient Medication 1 ED .STK-MED ONE 01/26 1409 DC Teaching ED 01/26 1410 Spironolactone 50 MG DAILY 01/26 1000 AC 01/26 PO 1113 Assessment/Plan Assessment: Ms. 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 # Community-acquired pneumonia CXR consistent with RLL pneumonia. Associated subjective fever, chills and cough. Patient is currently afebrile and without leukocytosis, although this is likely because patient was partially treated. Seen at [facility] five days prior to admission and discharged on azithromycin, however symptoms have worsened despite taking medications. Although patient has HFrEF, acute exacerbation is unlikely as patient has no evidence of volume overload on exam. * Cont ceftriaxone 1 g IV daily * Cont doxycyline 100 mg IV Q12H in place of azithromycin due to prolonged QTc. * TRC and nebs. * Cont Mucinex 600 mg PO BID. * Tessalon PRN for cough control * Check blood and sputum cultures. * Encourage oral hydration. * Check urinary Strep pneumo and Legionella antigen, Negative * Encourage incentive spirometry. #Non iscchemic cardiomyopathy: Does not seem to be in acute exacerbation of HFrEF with no evidence of volume overload on exam or CXR. proBNP only mildly elevated to 707. 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 Yee. S/p ICD placement in October 2015. Cardiomyopathy is of unclear etiology [facility] cardiac catheterization in March 2015 that was negative * Daily weights and strict I/Os. * Patient was hypotensive this morning blood pressure: 96/58. Will hold antihypertensives. * Continue [id number] Bumex 4 mg PO daily, carvedilol 12.5 mg PO BID, spironolactone 50 mg PO daily and Entresto 49 mg PO BID. #Neuropathic pain: * Continue wtbka-af-srejflytz duloxetine 20 mg PO daily. #GERD: Takes pantoprazole 20 mg PO daily. * Omeprazole 20 mg PO daily AC while inpatient, continue Diet: CHF DVT PPx: Lovenox and ALPs CODE: FULL Problem List: 1. Community acquired pneumonia 2. Morbid obesity 3. Asthma Pain Ratin Pain Location: No Pain Pain Goal: Remain pain free Pain Plan: Tylenol PRN Tomorrow's Labs & Rationales: BEP: Monitor electrolytes in the setting of diuresis.
[2017-01-27 14:42] VITALS: BP 100/64
--- NOTE | 2017-01-27 20:30 | Cons- Cardiology ---
General Information and HPI Consulting Request Date of Consult: 01/27/17 Requested By: JOSE MCCRARY MD Reason for Consult: Possible CHF History of Present Illness: The patient is a 36-year-old female with history of nonischemic cardiomyopathy, LV ejection fraction 20 to 25%, moderate mitral regurgitation who was admitted with shortness of breath. She was recently admitted to [facility] for pneumonia, discharged home on azithromycin. Her symptoms have continued to worsen, and she was febrile with temperature of 102. She notes frequent cough. Her baseline orthopnea is unchanged. No recent increase in peripheral edema. No chest pain. No palpitations. No diaphoresis. Her dilated cardiomyopathy was diagnosed in 2013 during preoperative evaluation for bariatric surgery. She had a cardiac catheterization in 2014 which revealed no significant coronary artery disease. She has a defibrillator in place. Allergies/Medications Allergies: Coded Allergies: No Known Allergies (10/19/15) Home Med List: Albuterol Sulfate (Proair Hfa) 90 MCG HFA.AER.AD 2 PUF INH AD PRN EXERCISE INDUCED ASTHMA (Reported) Azithromycin 500 MG TABLET 1 TAB PO DAILY PNEUMONIA (Reported) Bumetanide 2 MG TABLET 1 TAB PO BID DIURETIC (Reported) Carvedilol 12.5 MG TABLET 1 TAB PO BID HEART (Reported) Codeine Phosphate/Guaifenesi (Virtussin AC Liquid) 10 MG-100 MG/5 ML LIQUID 15 ML PO Q4-6H PRN COUGH (Reported) Duloxetine HCl 20 MG CAPSULE.DR 1 CAP PO DAILY NERVE PAIN (Reported) Magnesium Oxide 400 MG TABLET 1 TAB PO DAILY SUPPLEMENT (Reported) Pantoprazole Sodium 20 MG TABLET.DR 1 TAB PO DAILY GI (Reported) Sacubitril/Valsartan (Entresto 49 MG-51 MG Tablet) 49 MG-51 MG TABLET 1 TAB PO BID HEART (Reported) Spironolactone 50 MG TABLET 1 TAB PO DAILY DIURETIC (Reported) Ubidecarenone (Co Q-10) (Unknown Strength) CAPSULE (Unknown Dose) PO DAILY SUPPLEMENT (Reported) Current Medications: Current Medications Sig/Tammy Start time Last Medication Dose Route Stop Time Status Admin Acetaminophen 650 MG Q6P PRN 01/25 2230 AC PO Acetaminophen/ 1 TAB Q6P PRN 01/25 2230 AC Hydrocodone Bitart PO Albuterol Sulfate 3 ML EVERY 4 HRS/AWAKE 01/26 1200 AC 01/27 INH 2044 Albuterol Sulfate 2 PUF Q4-6 PRN PRN 01/25 2145 AC 01/27 INH 1920 Benzonatate 100 MG TIDPRN PRN 01/26 1530 AC 01/27 PO 0953 Bumetanide 4 MG DAILY 01/26 1000 AC 01/26 PO 1113 Carvedilol 12.5 MG BID 01/25 2200 AC 01/27 PO 2154 Ceftriaxone Sodium 1,000 MG 2200 01/26 2200 AC 01/27 IV 2154 Doxycycline Hyclate 100 MG Q12 01/26 1000 AC 01/27 Sodium Chloride 100 ML IV 2154 Duloxetine HCl 20 MG DAILY 01/26 1000 AC 01/27 PO 0933 Enoxaparin Sodium 40 MG DAILY 01/26 1000 AC 01/27 SC 0950 Guaifenesin 600 MG Q12 01/25 2200 AC 01/27 PO 2154 Guaifenesin/Codeine 10 ML Q6P PRN 01/27 2230 AC 01/27 Phosphate PO 2256 Lactobacillus 1 CAP DAILY 01/26 1000 AC 01/27 Acidophilus PO 0933 Magnesium Oxide 400 MG DAILY 01/26 1000 AC 01/27 PO 0933 Metoclopramide HCl 5 MG Q6P PRN 01/25 2300 AC PO Morphine Sulfate 2 MG Q4P PRN 01/25 2230 AC IV Omeprazole 20 MG DAILY AC 01/26 0700 AC 01/27 PO 0625 Spironolactone 50 MG DAILY 01/26 1000 AC 01/26 PO 1113 Review of Systems Review of Systems: No rash. No tremor. No melena. No syncope. All other systems are reviewed and are noted to be negative. Past History Travel History Traveled to [place] past 21 day No Medical History Blood Transfusion Hx: No Neurological: neuropathic pain EENT: NONE Cardiovascular: cardiomyopathy (nonischemic dilated), systolic CHF Respiratory: asthma (exercise-induced), SLEEP APNEA Gastrointestinal: GERD Hepatic: NONE Renal: KIDNEY STONES Musculoskeletal: HERNIATED DISC X 4 Psychiatric: NONE Endocrine: obesity Blood Disorders: NONE Cancer(s): NONE RN QUALITY/Reproductive: NONE Surgical History Surgical History: CS X 4 AICD placement KIDNEY STONE LAP (x4) Family History Relations & Conditions If Any: FATHER FH: COPD (chronic obstructive pulmonary disease) Psychosocial History Where Do You Live? Home Who Do You Live With? spouse, child Services at Home: None Primary Language: Korean Smoking Status: Former Smoker ETOH Use: denies use Illicit Drug Use: denies illicit drug use Functional Ability ADLs Independent: dressing, eating, toileting, bathing. Ambulation: independent IADLs Independent: shopping, housework, finances, food prep, telephone, transportation , medication admin. Exam & Diagnostic Data Vital Signs and I&O Vital Signs Date Time Temp Pulse Resp B/P B/P Pulse O2 O2 Flow FiO2 Mean Ox Delivery Rate 01/27 2228 98.4 76 20 110/66 95 Room Air 01/27 2154 98.0 76 110/66 01/27 1640 96 Room Air 01/27 1442 97.9 73 20 100/64 96 01/27 1050 95 Room Air 01/27 0940 64 96/58 Intake & Output 01/27 1600 01/27 0800 01/27 0000 01/26 1600 01/26 0800 01/26 0000 Intake Total 580 600 250 Output Total 700 Balance 580 600 -450 Intake, IV 100 120 10 Intake, Oral 480 480 240 Number 2 Bowel Movements Output, Urine 700 Patient 305 lb 300 lb Weight Weight Standing Scale Measurement Method Physical Exam: Gen: The patient is in no acute distress HEENT: Normal nose, ears, and oropharynx. Pupils equal bilaterally. Conjunctiva normal. Neck: Supple with no JVD, no masses, and no thyromegaly Lungs: Scattered rhonchi with normal respiratory effort Heart: RRR, S1, S2, 1/6 systolic murmur. No peripheral edema, 2+ pulses in the lower extremities bilaterally Abdomen: Soft, nontender, no masses. No hepatomegaly. No splenomegaly Extremities: No clubbing or cyanosis. Normal muscle strength in the upper and lower extremities. Skin: Normal skin turgor with no skin ulcers or lesions noted. Neuro: Cranial nerves intact. Sensation intact Psych: Alert and oriented 3 with appropriate affect Labs/Geronimo Results: 01/25/17 2014: Lactic Acid 0.9 01/25/171914: Anion Gap 13, Estimated GFR > 60, BUN/Creatinine Ratio 17.1, Glucose 161 H, Lactic Acid 1.5, Calcium 8.6, Total Bilirubin 0.4, AST 21, ALT 33, Alkaline Phosphatase 67, Troponin I < 0.01, Arn-Q-Jkpttaxbarx Pept 707 H, Total Protein 7.1, Albumin 3.9, Globulin 3.2, Albumin/Globulin Ratio 1.2, CBC w Diff NO MAN DIFF REQ, RBC 4.30, MCV 84.8, MCH 27.6, RDW 14.1, MPV 8.5, Gran % 57.8, Lymphocytes % 34.2, Monocytes % 6.6, Eosinophils % 1.1, Basophils % 0.3, Absolute Granulocytes 3.1, Absolute Lymphocytes 1.9, Absolute Monocytes 0.4, Absolute Eosinophils 0.1, Absolute Basophils 0, PUBS MCHC 32.5 L Microbiology 01/25 2014 BLOOD: Blood Culture - RECD 01/25 1915 BLOOD: Blood Culture - RECD Diagnostic Data EKG Results EKG tracing is independently reviewed, and reveals normal sinus rhythm at 78. QTC is 543 CXR Results Right lower lobe pneumonia. Other Results echocardiogram October 20, 2015: 1. This was a technically difficult study due to patient's body habitus. 2. Minimal aortic sclerosis present. The valve is trileaflet. There is no valvular stenosis. 3. Mitral leaflet thickening is present. Mitral insufficiency was present which appears to be at least moderate in severity. Moderate to severe left atrial enlargement is present. 4. There is no significant pericardial fluid detected. 5. The left ventricular chamber is moderately dilated (68 mm). There is significant global hypokinesia present. The estimated ejection fraction is approximately 20-25%. 6. Mild to moderate enlargement of the right heart chambers is present. Inferior vena cava dilation is also noted. Moderate tricuspid insufficiency is present with a minimal to mild pulmonic insufficiency and moderate pulmonary hypertension with an estimated right ventricular systolic pressure of 56 mmHg. 7. No prior study was available for comparison. Assessment/Plan Assessment/Plan Assessment: 1. Nonischemic cardiomyopathy, LVEF 20 to 25% 2. Community-acquired pneumonia 3. No evidence of acute CHF Plan: * Antibiotics as per the medical service * Continue p.o. Bumex * Continue other cardiac medications, including carvedilol, Entresto, and spironolactone Consult Acknowledgment - Thank you for your consult request.
[2017-01-27 22:28] VITALS: BP 110/66
[2017-01-28 06:27] VITALS: BP 108/64
--- NOTE | 2017-01-28 09:02 | PN- Housestaff ---
See Addendum Subjective Follow-up For: RLL Pneumonia Subjective: Ms. Hansen was seen and examined this morning. Upright in the chair beside the bed. She states that she feels good although continues to endorse a mild cough. Cough is nonproductive in nature. She has moderate relief from cough suppressants. She denies any fever, chills, nausea, vomiting. She is tolerating by mouth intake well. Denies any lightheadedness, shortness of breath or chest pain and discomfort. Review of Systems Constitutional: Reports: see HPI. Denies: chills, diaphoresis, fever, malaise, weakness. Objective Last 24 Hrs of Vital Signs/I&O Vital Signs Date Time Temp Pulse Resp B/P B/P Pulse O2 O2 Flow FiO2 Mean Ox Delivery Rate 01/28 06 98.1 74 16 108/64 96 Room Air 01/27 2228 98.4 76 20 110/66 95 Room Air 01/27 2154 98.0 76 110/66 01/27 1640 96 Room Air 01/27 1442 97.9 73 20 100/64 96 01/27 1050 95 Room Air 01/27 0940 64 96/58 Physical Exam General Appearance: Alert, Oriented X3, Cooperative HEENT: Mucous Membr. moist/pink Cardiovascular: Regular Rate, Normal S1, Normal S2 Lungs: Clear to Auscultation Abdomen: Normal Bowel Sounds, Soft, No Tenderness Neurological: Normal Speech Extremities: No Edema Vascular: Normal Pulses Current Medications: Current Medications Sig/Tammy Start time Last Medication Dose Route Stop Time Status Admin Acetaminophen 650 MG Q6P PRN 01/25 2230 AC PO Acetaminophen/ 1 TAB Q6P PRN 01/25 2230 AC Hydrocodone Bitart PO Albuterol Sulfate 3 ML EVERY 4 HRS/AWAKE 01/26 1200 AC 01/27 INH 2044 Albuterol Sulfate 2 PUF Q4-6 PRN PRN 01/25 2145 AC 01/27 INH 1920 Benzonatate 100 MG TIDPRN PRN 01/26 1530 AC 01/27 PO 0953 Bumetanide 4 MG DAILY 01/26 1000 AC 01/26 PO 1113 Carvedilol 12.5 MG BID 01/25 2200 AC 01/27 PO 2154 Ceftriaxone Sodium 1,000 MG 2200 01/26 2200 AC 01/27 IV 2154 Doxycycline Hyclate 100 MG Q12 01/26 1000 AC 01/27 Sodium Chloride 100 ML IV 2154 Duloxetine HCl 20 MG DAILY 01/26 1000 AC 01/27 PO 0933 Enoxaparin Sodium 40 MG DAILY 01/26 1000 AC 01/27 SC 0950 Guaifenesin 600 MG Q12 01/25 2200 AC 01/27 PO 2154 Guaifenesin/Codeine 10 ML Q6P PRN 01/27 2230 AC 01/27 Phosphate PO 2256 Lactobacillus 1 CAP DAILY 01/26 1000 AC 01/27 Acidophilus PO 0933 Magnesium Oxide 400 MG DAILY 01/26 1000 AC 01/27 PO 0933 Metoclopramide HCl 5 MG Q6P PRN 01/25 2300 AC PO Morphine Sulfate 2 MG Q4P PRN 01/25 2230 AC IV Omeprazole 20 MG DAILY AC 01/26 0700 AC 01/28 PO 0650 Spironolactone 50 MG DAILY 01/26 1000 AC 01/26 PO 1113 Last 24 Hrs of Lab/Geronimo Results Last 24 Hrs of Labs/Mics: Laboratory Tests 01/28/17 0720: Anion Gap 6, Estimated GFR > 60, BUN/Creatinine Ratio 21.7 Assessment/Plan Assessment: Ms. 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 # Community-acquired pneumonia CXR consistent with RLL pneumonia. Associated subjective fever, chills and cough. Patient is currently afebrile and without leukocytosis, although this is likely because patient was partially treated. Seen at [facility] five days prior to admission and discharged on azithromycin, however symptoms have worsened despite taking medications. Although patient has HFrEF, acute exacerbation is unlikely as patient has no evidence of volume overload on exam. * Cont ceftriaxone 1 g IV daily * Cont doxycyline 100 [address] IV Q12H in place of azithromycin due to prolonged QTc. * TRC and nebs. * Cont Mucinex 600 mg PO BID. * Tessalon PRN for cough control * Check blood and sputum cultures. * Check urinary Strep pneumo and Legionella antigen, Negative * Encourage incentive spirometry. * Robitussin AC Q6PRN #Non iscchemic cardiomyopathy: Does not seem to be in acute exacerbation of HFrEF with no evidence of volume overload on exam or CXR. proBNP only mildly elevated to 707. 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 S/p ICD placement in October 2015. Cardiomyopathy is of unclear etiology [facility] cardiac catheterization in March 2015 that was negative * Daily weights and strict I/Os. * We obtained a cardiology consult on 01/27/2017. No evidence of CHF. By mouth Bumex to be continued. Other cardiac medications including carvedilol, and Entresto and spironolactone to be continued. Continue medications as long as blood pressure systolic is above 95. #Diarrhea: Patient did have one loose episode of diarrhea overnight. We have ordered a C. difficile. #Neuropathic pain: * Continue bbcos-hu-dwornhnam duloxetine 20 mg PO daily. #GERD: Takes pantoprazole 20 mg PO daily. * Omeprazole 20 mg PO daily AC while inpatient, continue Diet: CHF DVT PPx: Lovenox and ALPs CODE: FULL Problem List: 1. Nonischemic cardiomyopathy 2. Community acquired pneumonia 3. Morbid obesity 4. Right lower lobe pneumonia 5. Congestive heart failure (CHF) Pain Ratin Pain Location: No Pain Pain Goal: Remain pain free Pain Plan: tylenol PRN Tomorrow's Labs & Rationales: BEP: Monirot electrolytes in the settin of aggressive diuresis
--- NOTE | 2017-01-28 10:23 | Event Note ---
Event Note Event Note: S: Informed that the patient was hypotensive and her care provider was questioning whether patient should be given antihypertensives medications. B: This is a patient with heart failure with reduced ejection fraction 20-25% requiring carvedilol, entresto, spironolactone, Bumex. A/R: I contacted ground layer shipping lead person Theodore Melchor MD recommended that we should continue giving patient medications as long as systolic blood pressure is above 95. This information was conveyed to the team. Will continue to monitor Attending physician made aware.
--- NOTE | 2017-01-28 11:38 | NUR ---
PT BP AT 1050 98/62. UTILITY FORESTER ALLIE AWARE. OK TO GIVE CARDIAC MEDS. PER NELI AWAIT 1 HOUR AFTER CARDIC MEDS AND IF SYSTOLIC BP GREATER THAN 95, OK TO GIVE BUMEX. WILL RECHECK
[2017-01-28 11:50] VITALS: BP 104/62
[2017-01-28 14:42] VITALS: BP 100/58
--- NOTE | 2017-01-28 14:51 | PN- Cardiology ---
Subjective Subjective: The patient reports that her shortness of breath and cough are somewhat better. No chest pain. No palpitations. No diaphoresis. Blood pressure was noted to be borderline today. Objective Vital Signs and I&Os Vital Signs Date Time Temp Pulse Resp B/P B/P Pulse O2 O2 Flow FiO2 Mean Ox Delivery Rate 01/28 1442 98.4 64 20 100/58 97 01/28 1150 71 104/62 01/28 1129 97 Room Air Room Air 01/28 1041 63 98/62 01/28 0800 Room Air 01/28 0627 98.1 74 16 108/64 96 Room Air 01/27 2228 98.4 76 20 110/66 95 Room Air 01/27 2154 98.0 76 110/66 01/27 1640 96 Room Air Intake & Output 01/28 1600 01/28 0800 01/28 0000 01/27 1600 01/27 0800 01/27 0000 Intake Total 1620 580 Output Total 1100 Balance 520 580 Intake, IV 120 100 Intake, Oral 1500 480 Number 1 Bowel Movements Output, Urine 1100 Physical Exam: Gen: The patient is in no acute distress HEENT: Normal nose, ears, and oropharynx. Pupils equal bilaterally. Conjunctiva normal. Neck: Supple with no JVD, no masses, and no thyromegaly Lungs: Scattered rhonchi with normal respiratory effort Heart: RRR, S1, S2, 1/6 systolic murmur. No peripheral edema, 2+ pulses in the lower extremities bilaterally Abdomen: Soft, nontender, no masses. No hepatomegaly. No splenomegaly Extremities: No clubbing or cyanosis. Normal muscle strength in the upper and lower extremities. Skin: Normal skin turgor with no skin ulcers or lesions noted. Current Medications: Current Medications Sig/Tammy Start time Last Medication Dose Route Stop Time Status Admin Acetaminophen 650 MG Q6P PRN 01/25 2230 AC PO Acetaminophen/ 1 TAB Q6P PRN 01/25 2230 AC 01/28 Hydrocodone Bitart PO 1202 Albuterol Sulfate 3 ML EVERY 4 HRS/AWAKE 01/26 1200 AC 01/28 INH 1127 Albuterol Sulfate 2 PUF Q4-6 PRN PRN 01/25 2145 AC 01/27 INH 1920 Benzonatate 100 MG TIDPRN PRN 01/26 1530 AC 01/27 PO 0953 Bumetanide 4 MG DAILY 01/26 1000 AC 01/28 PO 1158 Carvedilol 12.5 MG BID 01/25 2200 AC 01/28 PO 1041 Ceftriaxone Sodium 1,000 MG 2200 01/26 2200 AC 01/27 IV 2154 Doxycycline Hyclate 100 MG Q12 01/26 1000 AC 01/28 Sodium Chloride 100 ML IV 0937 Duloxetine HCl 20 MG DAILY 01/26 1000 AC 01/28 PO 0934 Enoxaparin Sodium 40 MG DAILY 01/26 1000 AC 01/28 SC 0938 Guaifenesin 600 MG Q12 01/25 2200 AC 01/28 PO 0934 Guaifenesin/Codeine 10 ML Q6P PRN 01/27 2230 AC 01/28 Phosphate PO 0935 Lactobacillus 1 CAP DAILY 01/26 1000 AC 01/28 Acidophilus PO 0935 Magnesium Oxide 400 MG DAILY 01/26 1000 AC 01/28 PO 0934 Metoclopramide HCl 5 MG Q6P PRN 01/25 2300 AC PO Morphine Sulfate 2 MG Q4P PRN 01/25 2230 AC IV Omeprazole 20 MG DAILY AC 01/26 0700 AC 01/28 PO 0650 Spironolactone 50 MG DAILY 01/26 1000 AC 01/28 PO 1041 Results Last 48 Hrs of Labs/Mics: Laboratory Tests 01/28/17 0720: Anion Gap 6, Estimated GFR > 60, BUN/Creatinine Ratio 21.7 Assessment/Plan Assessment/Plan Assessment: 1. Nonischemic cardiomyopathy, LVEF 20 to 25% 2. Community-acquired pneumonia 3. No evidence of acute CHF Plan: * Antibiotics as per the medical service * Continue p.o. Bumex * Continue other cardiac medications, including carvedilol, Entresto, and spironolactone * Hold cardiac medications for systolic blood pressure less than 95. Continue telemetry? Not applicable
--- NOTE | 2017-01-28 17:15 | NUR ---
STOOL SENT TO LAB
[2017-01-28 22:12] VITALS: BP 109/69
[2017-01-29 06:30] VITALS: BP 112/58
--- NOTE | 2017-01-29 07:39 | PN- Housestaff ---
KEVIN THOMAS,ODIN 01/29/17 0737: Subjective Follow-up For: RLL Pneumonia Subjective: I saw and examined the patient today morning She is doing well without any overnight issues. Still had dry cough, no fevers/ chills/no phlegm production. Review of Systems Constitutional: Reports: see HPI. Comments: ROS negative except the above Objective Last 24 Hrs of Vital Signs/I&O Vital Signs Date Time Temp Pulse Resp B/P B/P Pulse O2 O2 Flow FiO2 Mean Ox Delivery Rate 01/29 0630 98.7 80 18 112/58 96 Room Air 01/29 0000 98 Room Air 01/28 2212 98.0 77 20 109/69 98 Room Air 01/28 2122 77 109/68 01/28 1645 96 Room Air 01/28 1600 100 Room Air 5.0L 01/28 1442 98.4 64 20 100/58 97 01/28 1150 71 104/62 01/28 1129 97 Room Air Room Air 01/28 1041 63 98/62 01/28 0800 Room Air Intake & Output 01/29 0800 01/29 0000 01/28 1600 Intake Total 450 1620 Output Total 1700 1100 Balance -1250 520 Intake, IV 150 120 Intake, Oral 300 1500 Number 1 1 Bowel Movements Output, Urine 1700 1100 Physical Exam General Appearance: Alert, Oriented X3, Cooperative, No Acute Distress, morbidly obese Skin: No Rashes, No Breakdown HEENT: Atraumatic, PERRLA, EOMI Neck: Supple Cardiovascular: Normal S1, Normal S2, systolic murmur present Lungs: mild wheezing with good air entry Abdomen: Normal Bowel Sounds, Soft, No Tenderness Neurological: Normal Gait, Normal Speech, Strength at 5/5 X4 Ext Extremities: No Clubbing, No Cyanosis Vascular: Normal Pulses, Pulses Symmetrical Current Medications: Current Medications Sig/Tammy Start time Last Medication Dose Route Stop Time Status Admin Acetaminophen 650 MG Q6P PRN 01/25 2230 AC PO Acetaminophen/ 1 TAB Q6P PRN 01/25 2230 AC 01/28 Hydrocodone Bitart PO 2349 Albuterol Sulfate 3 ML EVERY 4 HRS/AWAKE 01/26 1200 AC 01/29 INH 0910 Albuterol Sulfate 2 PUF Q4-6 PRN PRN 01/25 2145 AC 01/27 INH 1920 Benzonatate 100 MG TIDPRN PRN 01/26 1530 AC 01/27 PO 0953 Bumetanide 4 MG DAILY 01/26 1000 AC 01/29 PO 0928 Carvedilol 12.5 MG BID 01/25 2200 AC 01/29 PO 0927 Ceftriaxone Sodium 1,000 MG 2200 01/26 2200 AC 01/28 IV 2121 Doxycycline Hyclate 100 MG Q12 01/26 1000 AC 01/29 Sodium Chloride 100 ML IV 0928 Duloxetine HCl 20 MG DAILY 01/26 1000 AC 01/29 PO 0928 Enoxaparin Sodium 40 MG DAILY 01/26 1000 AC 01/29 SC 0928 Guaifenesin 600 MG Q12 01/25 2200 AC 01/29 PO 0928 Guaifenesin/Codeine 10 ML Q6P PRN 01/27 2230 AC 01/28 Phosphate PO 2349 Lactobacillus 1 CAP DAILY 01/26 1000 AC 01/29 Acidophilus PO 0928 Magnesium Oxide 400 MG DAILY 01/26 1000 AC 01/29 PO 0928 Metoclopramide HCl 5 MG Q6P PRN 01/25 2300 AC PO Morphine Sulfate 2 MG Q4P PRN 01/25 2230 AC IV Non-Formulary 0 SEE ADMIN CRITERIA 01/28 1945 CAN Medication ANY Omeprazole 20 MG DAILY AC 01/26 0700 AC 01/29 PO 0635 Spironolactone 50 MG DAILY 01/26 1000 AC 01/29 PO 0927 Last 24 Hrs of Lab/Geronimo Results Last 24 Hrs of Labs/Mics: Laboratory Tests 01/29/17 0620: Anion Gap 6, Estimated GFR > 60, BUN/Creatinine Ratio 17.1 Microbiology 01/28 1630 STOOL: Clostridium difficile Toxin A & B - RECD Assessment/Plan Assessment: Ms. 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 # Community-acquired pneumonia CXR consistent with RLL pneumonia. Associated subjective fever, chills and cough. Patient is currently afebrile and without leukocytosis, although this is likely because patient was partially treated. Seen at [facility] ([place]) five days prior to admission and discharged on azithromycin, however symptoms have worsened despite taking medications. Although patient has HFrEF, acute exacerbation is unlikely as patient has no evidence of volume overload on exam. * Cont ceftriaxone 1 g IV daily * Cont doxycyline 100 mg IV Q12H in place of azithromycin due to prolonged QTc( 543) * TRC and nebs. * blood and sputum cultures remian negative so far * Check urinary Strep pneumo and Legionella antigen, Negative * Encourage incentive spirometry. * Robitussin AC Q6PRN for cough * stable for discharge today. #Non iscchemic cardiomyopathy: Does not seem to be in acute exacerbation of HFrEF with no evidence of volume overload on exam or CXR. proBNP only mildly elevated to 707. Follows with family program specialist Dr. Yee. S/p ICD placement in October 2015. Cardiomyopathy is of unclear etiology [facility] cardiac catheterization in March 2015 that was negative * Daily weights and strict I/Os. * We obtained a cardiology consult on 01/27/2017. No evidence of CHF. By mouth Bumex to be continued. Other cardiac medications including carvedilol, and Entresto and spironolactone to be continued. Continue medications as long as blood pressure systolic is above 95. #Diarrhea: Patient did have one loose episode of diarrhea. We have ordered a C. difficile - awaiting results. #Neuropathic pain: * Continue [id number] duloxetine 20 mg PO daily. #GERD: Takes pantoprazole 20 mg PO daily. * Omeprazole 20 mg PO daily AC while inpatient, continue Diet: CHF DVT PPx: Lovenox and ALPs CODE: FULL Problem List: 1. Asthma 2. Right lower lobe pneumonia 3. HFrEF (heart failure with reduced ejection fraction) 4. 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 Afebrile here, WBC 5.6. Patient is poorly compliant with her medications. Patient feels much better today. She has no complaints, is breathing well, afebrile, and eating well. 1. RLL pneumonia 2. Dilated cardiomyopathy 3. HFrEF Plan - Continue on general medicine - Augmentin and Doxycycline as an outpatient - Continue home medications - Follow cardiology recommendations
[2017-01-29 09:27] VITALS: BP 112/58
[2017-01-29] MEDS ORDERED: DOXYCYCLINE HY100 M4 PO (10:57)
[2017-01-29] MEDS ORDERED: AUGMENTIN 875-1 EACH PO (11:08)
--- NOTE | 2017-01-29 11:46 | PN- Cardiology ---
Subjective Subjective: Shortness of breath is improving. Cough is improving. No chest pain. No palpitations. No diaphoresis. No nausea or vomiting. Objective Vital Signs and I&Os Vital Signs Date Time Temp Pulse Resp B/P B/P Pulse O2 O2 Flow FiO2 Mean Ox Delivery Rate 01/29 0927 80 112/58 01/29 0913 96 Room Air 01/29 0630 98.7 80 18 112/58 96 Room Air 01/29 0000 98 Room Air 01/28 2212 98.0 77 20 109/69 98 Room Air 01/28 2122 77 109/68 01/28 1645 96 Room Air 01/28 1600 100 Room Air 5.0L 01/28 1442 98.4 64 20 100/58 97 01/28 1150 71 104/62 Intake & Output 01/29 1600 01/29 0800 01/29 0000 01/28 1600 01/28 0800 01/28 0000 Intake Total 059 671 0114 Output Total 700 1700 1100 Balance -700 100 -1250 520 Intake, IV 0 150 120 Intake, Oral 242 030 3916 Number 0 1 1 Bowel Movements Output, Urine 700 1700 1100 Patient 309 lb Weight Weight Standing Scale Measurement Method Physical Exam: Gen: The patient is in no acute distress HEENT: Normal nose, ears, and oropharynx. Pupils equal bilaterally. Conjunctiva normal. Neck: Supple with no JVD, no masses, and no thyromegaly Lungs: Scattered rhonchi with normal respiratory effort Heart: RRR, S1, S2, 1/6 systolic murmur. No peripheral edema, 2+ pulses in the lower extremities bilaterally Abdomen: Soft, nontender, no masses. No hepatomegaly. No splenomegaly Extremities: No clubbing or cyanosis. Normal muscle strength in the upper and lower extremities. Skin: Normal skin turgor with no skin ulcers or lesions noted. Current Medications: Current Medications Sig/Tammy Start time Last Medication Dose Route Stop Time Status Admin Acetaminophen 650 MG Q6P PRN 01/25 2230 AC PO Acetaminophen/ 1 TAB Q6P PRN 01/25 2230 AC 01/28 Hydrocodone Bitart PO 2349 Albuterol Sulfate 3 ML EVERY 4 HRS/AWAKE 01/26 1200 AC 01/29 INH 0910 Albuterol Sulfate 2 PUF Q4-6 PRN PRN 01/25 2145 AC 01/27 INH 1920 Benzonatate 100 MG TIDPRN PRN 01/26 1530 AC 01/27 PO 0953 Bumetanide 4 MG DAILY 01/26 1000 AC 01/29 PO 0928 Carvedilol 12.5 MG BID 01/25 2200 AC 01/29 PO 0927 Ceftriaxone Sodium 1,000 MG 2200 01/26 2200 DC 01/28 IV 2121 Doxycycline Hyclate 100 MG BID 01/29 2200 AC PO Doxycycline Hyclate 100 MG Q12 01/26 1000 DC 01/29 Sodium Chloride 100 ML IV 0928 Duloxetine HCl 20 MG DAILY 01/26 1000 AC 01/29 PO 0928 Enoxaparin Sodium 40 MG DAILY 01/26 1000 AC 01/29 SC 0928 Guaifenesin 600 MG Q12 01/25 2200 AC 01/29 PO 0928 Guaifenesin/Codeine 10 ML Q6P PRN 01/27 2230 AC 01/28 Phosphate PO 2349 Lactobacillus 1 CAP DAILY 01/26 1000 AC 01/29 Acidophilus PO 0928 Magnesium Oxide 400 MG DAILY 01/26 1000 AC 01/29 PO 0928 Metoclopramide HCl 5 MG Q6P PRN 01/25 2300 AC PO Morphine Sulfate 2 MG Q4P PRN 01/25 2230 DC IV Non-Formulary 0 SEE ADMIN CRITERIA 01/28 1945 CAN Medication ANY Omeprazole 20 MG DAILY AC 01/26 0700 AC 01/29 PO 0635 Spironolactone 50 MG DAILY 01/26 1000 AC 01/29 PO 0927 Results Last 48 Hrs of Labs/Mics: Laboratory Tests 01/29/17 0620: Anion Gap 6, Estimated GFR > 60, BUN/Creatinine Ratio 17.1 01/28/17 0720: Anion Gap 6, Estimated GFR > 60, BUN/Creatinine Ratio 21.7 Assessment/Plan Assessment/Plan Assessment: 1. Nonischemic cardiomyopathy, LVEF 20 to 25% 2. Community-acquired pneumonia 3. No evidence of acute CHF Plan: * Antibiotics as per the medical service * Continue p.o. Bumex * Continue other cardiac medications, including carvedilol, Entresto, and spironolactone * Hold cardiac medications for systolic blood pressure less than 95. Continue telemetry? Not applicable
[2017-01-29] MEDS ORDERED: ROBITUSSIN COU237 M1 PO (11:52)
[2017-01-29] MEDS ORDERED: GUAIFENESIN ER600 MG PO (11:52)
--- NOTE | 2017-01-29 17:30 | Discharge Summary ---
Visit Information Visit Dates Admission Date: 01/25/17 Discharge Date: 01/29/17 Hospital Course Course Attending Physician: DR. JIMENEZ Primary Care Physician: BRENNAN THOMAS,CUBA Maloney Allergies: Coded Allergies: No Known Allergies (10/19/15) Discharge Instructions General Discharge Information Code Status: Full Code Patient's Diet: CHF Patient's Activity: as tolerated Follow-Up Instructions/Appts: Please follow up with your primary care physician and computer graphic artist Dr. Yee within 1 week of discharge. Please complete course of antibiotics by till 02/04/17 Medications at Discharge Discharge Medications: Stop taking the following medications: Azithromycin (Azithromycin) 500 MG TABLET ORAL DAILY Qty = 7 Continue taking these medications: Spironolactone (Spironolactone) 50 MG TABLET 1 Tablet ORAL DAILY Qty = 90 Comments: Last Taken: 01/29/17 Time: 930 AM Pantoprazole Sodium (Pantoprazole Sodium) 20 MG TABLET.DR 1 Tablet ORAL DAILY Qty = 90 Comments: Last Taken: 01/29/17 Time: 630 AM Bumetanide (Bumetanide) 2 MG TABLET 1 Tablet ORAL TWICE DAILY Qty = 60 Comments: Last Taken: 01/29/17 Time: 930 AM Magnesium Oxide (Magnesium Oxide) 400 MG TABLET 1 Tablet ORAL DAILY Qty = 30 Comments: Last Taken: 01/29/17 Time: 930 AM Duloxetine HCl (Duloxetine HCl) 20 MG CAPSULE.DR 1 Capsule ORAL DAILY Qty = 30 Comments: Last Taken: 01/29/17 Time: 930 AM Ubidecarenone (Co Q-10) (Unknown Strength) CAPSULE Unknown Dose ORAL DAILY Comments: NOT GIVEN IN HOSPITAL Carvedilol (Carvedilol) 12.5 MG TABLET 1 Tablet ORAL TWICE DAILY Qty = 180 Comments: Last Taken: 01/29/17 Time: 930 AM Sacubitril/Valsartan (Entresto 49 MG-51 MG Tablet) 49 MG-51 MG TABLET 1 Tablet ORAL TWICE DAILY Qty = 60 Comments: Last Taken: 01/29/17 Time: 930 AM Codeine Phosphate/Guaifenesi (Virtussin AC Liquid) 10 MG-100 MG/5 ML LIQUID 15 Milliliters ORAL Q4-6H as needed for COUGH Qty = 300 Comments: Last Taken: 01/29/17 Time: 12PM Albuterol Sulfate (Proair Hfa) 90 MCG HFA.AER.AD 2 Puff Inhale through mouth As Directed as needed for EXERCISE INDUCED ASTHMA Qty = 9 Comments: Last Taken: 01/29/17 Time: 12PM Start taking the following new medications: Doxycycline Hyclate (Doxycycline Hyclate) 100 MG TABLET 1 Tablet ORAL TWICE DAILY Qty = 14 No Refills Comments: Last Taken: 01/29/17 Time: 930 AM TOOK IV DOSE TODAY Amoxicillin/Potassium Clav (Augmentin 875-125 Tablet) 875 MG-125 MG TABLET 1 Tablet ORAL TWICE DAILY Qty = 14 No Refills Comments: NOT GIVEN IN HOSPITAL Guaifenesin/Dextromethorphan (Robitussin Cough-Chest Dm Liq) 100 MG-5 MG/5 ML LIQUID 10 Milliliters ORAL EVERY SIX HOURS NEEDED as needed for lung infection Qty = 20 No Refills Comments: NOT GIVEN IN HOSPITAL ASTHMA Qty = 9 Comments: Last Taken: 01/29/17 Time: 12PM Start taking the following new medications: Doxycycline Hyclate (Doxycycline Hyclate) 100 MG TABLET 1 Tablet ORAL TWICE DAILY Qty = 14 No Refills Comments: Last Taken: 01/29/17 Time: 930 AM TOOK IV DOSE TODAY Amoxicillin/Potassium Clav (Augmentin 875-125 Tablet) 875 MG-125 MG TABLET 1 Tablet ORAL TWICE DAILY Qty = 14 No Refills Comments: NOT GIVEN IN HOSPITAL Guaifenesin/Dextromethorphan (Robitussin Cough-Chest Dm Liq) 100 MG-5 MG/5 ML LIQUID 10 Milliliters ORAL EVERY SIX HOURS NEEDED as needed for lung infection Qty = 20 No Refills Comments: NOT GIVEN IN HOSPITAL
--- NOTE | 2017-01-29 21:08 | Discharge Summary ---
Visit Information Visit Dates Admission Date: 01/25/17 Discharge Date: 01/29/17 Hospital Course Course Attending Physician: JOSE MCCRARY MD Primary Care Physician: CUBA AMIN MD Hospital Course: Ms. Cruz is a 36 year old morbidly obese female with PMH significant for HFrEF s/p ICD placement and exercise-induced asthma who presented with dyspnea with productive cough concerning for pneumonia. The following problems were addressed and managed on general medicine floor: # Community-acquired pneumonia CXR upon admission was suggestive of RLL pneumoni, consistent with her dyspnea associated subjective fever, chills and cough. Patient remained afebrile since the admisison without leukocytosis. 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 However her symptoms continued to worsen despite finishing the antibiotics course. Although patient has HFrEF, acute exacerbation is unlikely as patient has no evidence of volume overload on exam. Patient was kept on ceftriaxone 1 g IV daily and doxycyline [address] Q12H in place of azithromycin due to prolonged QTc(543). She was discharged on 7 more days of PO doxycycline and Augmentin. # HFrEF Patient carries a history of nonischemic cardiomyopathy s/p ICD placement in October 2015. LVEF reportedly 20-25%. Her cardiomyopathy is of unclear etiology [facility] cardiac catheterization in March 2015 that was negative. Patient did not exhibit any signs of symptoms of acute exacerbation of HFrEF during the hospitalization. There was no evidence of volume overload on exam or CXR. Her proBNP was only mildly elevated at 707. Regardless cardiology was consulted and confirmed that there is no evidence of acute CHF exacerbation. She was kept on her home dose of Bumex as well as carvedilol, Entresto and spironolactone. #Diarrhea: Patient had an episode of diarrhea during the hospitalization. C. diff toxin test was negative. #Neuropathic pain: Patient was kept on home med duloxetine 20 mg PO daily. #GERD: Patient was kept on home med omeprazole 20 mg PO daily qAC. Allergies: Coded Allergies: No Known Allergies (10/19/15) Disposition Summary Disposition Principal Diagnosis: Pneumonia Additional Diagnosis: N/A Discharge Disposition: home or self care Discharge Instructions General Discharge Information Code Status: Full Code Patient's Diet: CHF Patient's Activity: As tolerated Follow-Up Instructions/Appts: Please follow up with your primary care physician and double surface operator Dr. Garcia within 1 week of discharge. Please complete course of antibiotics by till 02/04/17 Medications at Discharge Discharge Medications: Stop taking the following medications: Azithromycin (Azithromycin) 500 MG TABLET ORAL DAILY Qty = 7 Continue taking these medications: Spironolactone (Spironolactone) 50 MG TABLET 1 Tablet ORAL DAILY Qty = 90 Comments: Last Taken: 01/29/17 Time: 930 AM Pantoprazole Sodium (Pantoprazole Sodium) 20 MG TABLET.DR 1 Tablet ORAL DAILY Qty = 90 Comments: Last Taken: 01/29/17 Time: 630 AM Bumetanide (Bumetanide) 2 MG TABLET 1 Tablet ORAL TWICE DAILY Qty = 60 Comments: Last Taken: 01/29/17 Time: 930 AM Magnesium Oxide (Magnesium Oxide) 400 MG TABLET 1 Tablet ORAL DAILY Qty = 30 Comments: Last Taken: 01/29/17 Time: 930 AM Duloxetine HCl (Duloxetine HCl) 20 MG CAPSULE.DR 1 Capsule ORAL DAILY Qty = 30 Comments: Last Taken: 01/29/17 Time: 930 AM Ubidecarenone (Co Q-10) (Unknown Strength) CAPSULE Unknown Dose ORAL DAILY Comments: NOT GIVEN IN HOSPITAL Carvedilol (Carvedilol) 12.5 MG TABLET 1 Tablet ORAL TWICE DAILY Qty = 180 Comments: Last Taken: 01/29/17 Time: 930 AM Sacubitril/Valsartan (Entresto 49 MG-51 MG Tablet) 49 MG-51 MG TABLET 1 Tablet ORAL TWICE DAILY Qty = 60 Comments: Last Taken: 01/29/17 Time: 930 AM Codeine Phosphate/Guaifenesi (Virtussin AC Liquid) 10 MG-100 MG/5 ML LIQUID 15 Milliliters ORAL Q4-6H as needed for COUGH Qty = 300 Comments: Last Taken: 01/29/17 Time: 12PM Albuterol Sulfate (Proair Hfa) 90 MCG HFA.AER.AD 2 Puff Inhale through mouth As Directed as needed for EXERCISE INDUCED ASTHMA Qty = 9 Comments: Last Taken: 01/29/17 Time: 12PM Start taking the following new medications: Doxycycline Hyclate (Doxycycline Hyclate) 100 MG TABLET 1 Tablet ORAL TWICE DAILY Qty = 14 No Refills Comments: Last Taken: 01/29/17 Time: 930 AM TOOK IV DOSE TODAY Amoxicillin/Potassium Clav (Augmentin 875-125 Tablet) 875 MG-125 MG TABLET 1 Tablet ORAL TWICE DAILY Qty = 14 No Refills Comments: NOT GIVEN IN HOSPITAL Guaifenesin/Dextromethorphan (Robitussin Cough-Chest Dm Liq) 100 MG-5 MG/5 ML LIQUID 10 Milliliters ORAL EVERY SIX HOURS NEEDED as needed for lung infection Qty = 20 No Refills Comments: NOT GIVEN IN HOSPITAL Copies To: Tom GARCIA MD; BRENNAN THOMAS,CUBA Maloney
== END 2017-01-29 14:00 | DRG 139 ==
LOC: ERH 17:45 → ERHI 20:25 → 2NA 20:25 → ENRESERV 20:53 → ENTRNSPT 22:13 → 2NA 22:33 → CMPTRNSPT 22:42 → ENPENDDIS 01-29 13:39 → 2NA 01-29 14:00
PROVIDERS: Physician Assistant Medical; ADMIT Internal Medicine
DX: J18.9 Pneumonia, unspecified organism (principal); I11.0 Hypertensive heart disease with heart failure; I50.22 Chronic systolic (congestive) heart failure; E66.01 Morbid (severe) obesity due to excess calories; Z68.43 Body mass index [BMI] 50.0-59.9, adult; Z95.810 Presence of automatic (implantable) cardiac defibrillator; J45.990 Exercise induced bronchospasm; R19.7 Diarrhea, unspecified; K21.9 Gastro-esophageal reflux disease without esophagitis; I42.0 Dilated cardiomyopathy; G62.9 Polyneuropathy, unspecified; Z83.6 Family history of other diseases of the respiratory system; Z91.14 Patient's other noncompliance with medication regimen; I95.9 Hypotension, unspecified
CPT/HCPCS: 2NAP; 82436; 87040; 87070; 87449; 87450; 93005; 93010; J0456; J0696; J1650; J1940; J3490; J7040